=== PATIENT | male | born 1950 | race Caucasian/White ===

== ENCOUNTER 2023-06-10 21:57 | Emergency (ER) | payer OTHER ==
[~2023-06-10] VITALS: Ht 172.7 cm; Wt 60.3 kg
[~2023-06-10 21:57] MED LIST: ANORO ELLIPTA1 EACH INH; DECADRON4 MG PO; DOXYCYCLINE HY100 M3 PO; Ipratropium Brom3 ML INH; LISINOPRIL20 MG PO; MUCINEX1200 M1 PO; NEBULIZER1 EACH MC; NORVASC5 MG PO; OMNICEF300 MG PO; PREDNISONE10 MG PO; PROVENTIL HFA6.7 GM INH; VIBRAMYCIN HYC100 MG PO; ZITHROMAX250 MG PO
[2023-06-10 22:21] LABS: BASO % 0.4 % (0.0-1.0); EOS # 0.7 10*3/uL (0.0-0.4); EOS % 7.1 % (1.0-4.0); HEMATOCRIT 43.6 % (42.0-52.0); LYMPH # 1.6 10*3/uL (1.3-4.4); LYMPH % 15.7 % (27.0-41.0); MEAN CELL VOLUME 91.8 fl (80.0-94.0); MEAN CORPUSCULAR HGB 29.5 pg (27.0-31.0); MEAN CORPUSCULAR HGB CONC 32.1 g/dl (33.0-37.0); MEAN PLATELET VOLUME 9.3 fl (9.6-12.3); MONO # 0.8 10*3/uL (0.1-1.0); MONO % 7.6 % (3.0-9.0); NEUT # 7.1 10*3/uL (2.3-7.9); NEUT % 68.8 % (47.0-73.0); PLATELET COUNT AUTOMATED 331 10*3/uL (130-400); RED BLOOD COUNT 4.75 10*6/uL (4.50-5.90); RED CELL DISTRI WIDTH 12.6 % (0-14.5); WHITE BLOOD COUNT 10.3 10*3/uL (4.8-10.8)
[2023-06-10 22:45] LABS: ALKALINE PHOSPHATASE 76 U/L (46-116); BUN 10 mg/dl (9-23); CHLORIDE 105 mmol/L (98-107); POTASSIUM 3.8 mmol/L (3.4-5.1); SGPT/ALT 12 U/L (5-49)
[2023-06-11] MEDS ORDERED: ZITHROMAX250 MG PO (00:05)
[2023-06-11] MEDS ORDERED: DECADRON4 MG PO (00:05)
[2023-06-11] MEDS ORDERED: DEXAMETHASONE 4 MG TAB PO ONE ×2 (00:10)
== END 2023-06-11 00:56 | disposition home or self-care (01) ==
LOC: ED 21:57
PROVIDERS: Internal Medicine
DX: J44.1 Chronic obstructive pulmonary disease with (acute) exacerbation (principal); I10 Essential (primary) hypertension; Z88.8 Allergy status to other drugs, medicaments and biological substances; Z98.890 Other specified postprocedural states; Z87.891 Personal history of nicotine dependence

== ENCOUNTER 2023-07-30 10:32 | Emergency (ER) | payer OTHER ==
[~2023-07-30] VITALS: Ht 172.7 cm; Wt 63.5 kg
[2023-07-30 11:20] LABS: BASO % 0.9 % (0.0-1.0); EOS # 0.4 10*3/uL (0.0-0.4); EOS % 8.9 % (1.0-4.0); HEMATOCRIT 41.4 % (42.0-52.0); LYMPH # 0.9 10*3/uL (1.3-4.4); LYMPH % 18.3 % (27.0-41.0); MEAN CELL VOLUME 92.4 fl (80.0-94.0); MEAN CORPUSCULAR HGB 29.2 pg (27.0-31.0); MEAN CORPUSCULAR HGB CONC 31.6 g/dl (33.0-37.0); MEAN PLATELET VOLUME 8.7 fl (9.6-12.3); MONO # 0.4 10*3/uL (0.1-1.0); MONO % 8.5 % (3.0-9.0); NEUT % 63.2 % (47.0-73.0); PLATELET COUNT AUTOMATED 293 10*3/uL (130-400); RED BLOOD COUNT 4.48 10*6/uL (4.50-5.90); RED CELL DISTRI WIDTH 14.7 % (0-14.5); WHITE BLOOD COUNT 4.7 10*3/uL (4.8-10.8)
[2023-07-30 11:45] LABS: BUN 7 mg/dl (9-23); CHLORIDE 105 mmol/L (98-107); POTASSIUM 3.9 mmol/L (3.4-5.1)
[2023-07-30] MEDS ORDERED: PREDNISONE50 MG PO (12:56)
[2023-07-30] MEDS ORDERED: AVPAK AZITHROM250 M1 PO (12:56)
[2023-07-30] MEDS ORDERED: predniSONE 20 MG TAB PO ONE (13:00)
[2023-07-30] MEDS ORDERED: AZITHROMYCIN 250 MG TAB PO ONE (13:00)
== END 2023-07-30 13:18 | disposition home or self-care (01) ==
LOC: ED 10:32
PROVIDERS: Physician Assistant Medical
DX: I10 Essential (primary) hypertension (principal); J44.1 Chronic obstructive pulmonary disease with (acute) exacerbation; F12.90 Cannabis use, unspecified, uncomplicated; Z98.890 Other specified postprocedural states; Z87.891 Personal history of nicotine dependence

== ENCOUNTER 2023-09-03 03:43 | Inpatient (IN) | payer OTHER, MEDICAID ==
[~2023-09-03] VITALS: Ht 172.7 cm; Wt 59.9 kg
[~2023-09-03 03:43] MED LIST changes: +AVPAK AZITHROM250 M1 PO; +PREDNISONE50 MG PO
[2023-09-03 03:44] VITALS: BP 150/88
[2023-09-03] MEDS ORDERED: Albuterol Sulf/Ipratropium 3 ML VIAL NEB ONE (03:50)
[2023-09-03 04:13] LABS: BASO # 0.1 10*3/uL (0.0-0.1); BASO % 0.9 % (0.0-1.0); EOS # 0.7 10*3/uL (0.0-0.4); EOS % 10.6 % (1.0-4.0); HEMATOCRIT 40.4 % (42.0-52.0); LYMPH # 1.3 10*3/uL (1.3-4.4); LYMPH % 20.5 % (27.0-41.0); MEAN CELL VOLUME 89.6 fl (80.0-94.0); MEAN CORPUSCULAR HGB 29.3 pg (27.0-31.0); MEAN CORPUSCULAR HGB CONC 32.7 g/dl (33.0-37.0); MEAN PLATELET VOLUME 8.9 fl (9.6-12.3); MONO # 0.6 10*3/uL (0.1-1.0); MONO % 8.9 % (3.0-9.0); NEUT # 3.8 10*3/uL (2.3-7.9); NEUT % 58.9 % (47.0-73.0); PLATELET COUNT AUTOMATED 367 10*3/uL (130-400); RED BLOOD COUNT 4.51 10*6/uL (4.50-5.90); RED CELL DISTRI WIDTH 13.5 % (0-14.5); WHITE BLOOD COUNT 6.5 10*3/uL (4.8-10.8)
[2023-09-03 04:25] LABS: ACT PARTIAL THROMBO TIME 24.4 SECONDS (20.0-32.1)
[2023-09-03 04:32] LABS: BUN 11 mg/dl (9-23); CHLORIDE 106 mmol/L (98-107); POTASSIUM 3.6 mmol/L (3.4-5.1)
[2023-09-03] MEDS ORDERED: Ceftriaxone Sodium 1 GM/10 ML SYR IV ONE (05:25)
[2023-09-03] MEDS ORDERED: AZITHROMYCIN 250 MG TAB PO ONE (05:25)
[2023-09-03] MEDS ORDERED: Magnesium Hydroxide 30 ML UDC PO PRN (07:55)
[2023-09-03] MEDS ORDERED: BISACODYL 5 MG TAB PO PRN (07:55)
[2023-09-03] MEDS ORDERED: ACETAMINOPHEN 650 MG SUPP R PRN (07:55)
[2023-09-03] MEDS ORDERED: ACETAMINOPHEN 325 MG TAB PO PRN (07:55)
[2023-09-03] MEDS ORDERED: TEMAZEPAM 15 MG CAP PO PRN (07:55)
[2023-09-03] MEDS ORDERED: Ondansetron Hydrochloride 4 MG/2 ML VIAL IV PRN (07:55)
[2023-09-03] MEDS ORDERED: BISACODYL 10 MG SUPP R PRN (07:55)
[2023-09-03 09:22] VITALS: BP 117/77
[2023-09-03] MEDS ORDERED: Enoxaparin Sodium 40 MG/0.4 ML SYR SC SCH (10:00)
[2023-09-03 12:06] VITALS: BP 125/61
[2023-09-03] MEDS ORDERED: Albuterol Sulf/Ipratropium 3 ML VIAL NEB SCH (12:35)
[2023-09-03 15:00] VITALS: BP 117/68
[2023-09-03] MEDS ORDERED: LISINOPRIL 20 MG TAB PO SCH (18:00)
[2023-09-03 19:49] VITALS: BP 136/87
[2023-09-03] MEDS ORDERED: GUAIFENESIN 600 MG TAB ER PO SCH (22:00)
[2023-09-03] MEDS ORDERED: methylPREDNISolone sod succ 40 MG VIAL IV SCH (22:00)
[2023-09-03 23:16] VITALS: BP 128/76
[2023-09-04 04:08] LABS: BASO % 0.2 % (0.0-1.0); HEMATOCRIT 40.3 % (42.0-52.0); LYMPH # 0.7 10*3/uL (1.3-4.4); LYMPH % 9.9 % (27.0-41.0); MEAN CELL VOLUME 89.8 fl (80.0-94.0); MEAN CORPUSCULAR HGB CONC 32.3 g/dl (33.0-37.0); MEAN PLATELET VOLUME 9.1 fl (9.6-12.3); MONO # 0.3 10*3/uL (0.1-1.0); MONO % 4.2 % (3.0-9.0); NEUT # 5.6 10*3/uL (2.3-7.9); NEUT % 85.4 % (47.0-73.0); PLATELET COUNT AUTOMATED 345 10*3/uL (130-400); RED BLOOD COUNT 4.49 10*6/uL (4.50-5.90); RED CELL DISTRI WIDTH 13.3 % (0-14.5); WHITE BLOOD COUNT 6.6 10*3/uL (4.8-10.8)
[2023-09-04 04:29] LABS: ALKALINE PHOSPHATASE 54 U/L (46-116); BUN 12 mg/dl (9-23); CHLORIDE 106 mmol/L (98-107); POTASSIUM 4.3 mmol/L (3.4-5.1); SGPT/ALT 10 U/L (5-49); TOTAL PROTEIN 6.3 gm/dL (6.0-8.0)
[2023-09-04] MEDS ORDERED: Ceftriaxone Sodium 1 GM in SYRINGE INFUSION 10 ML IV SCH (06:00)
[2023-09-04 06:06] VITALS: BP 132/82
[2023-09-04] MEDS ORDERED: AZITHROMYCIN 250 ML IV SCH (07:00)
[2023-09-04] MEDS ORDERED: PERFLUTREN PROTEIN-A MICROSPHR 3 ML VIAL IV ONE (07:05)
[2023-09-04 07:28] VITALS: BP 115/83
[2023-09-04] MEDS ORDERED: amLODIPine besylate 5 MG TAB PO SCH (10:00)
[2023-09-04 12:01] VITALS: BP 140/69
[2023-09-04 13:00] VITALS: BP 135/76
[2023-09-04 16:00] VITALS: BP 147/74
[2023-09-04] MEDS ORDERED: COLACE100 MG PO (17:11)
[2023-09-04] MEDS ORDERED: DULCOLAX5 M1 PO (17:11)
[2023-09-04] MEDS ORDERED: DOCUSATE SODIUM 100 MG CAP PO SCH (18:00)
[2023-09-04 20:00] VITALS: BP 153/80
[2023-09-05] VITALS: BP 148/76
[2023-09-05 04:55] LABS: BUN 13 mg/dl (9-23); CHLORIDE 105 mmol/L (98-107); POTASSIUM 4.6 mmol/L (3.4-5.1)
[2023-09-05 05:59] LABS: BASO % 0.1 % (0.0-1.0); HEMATOCRIT 42.2 % (42.0-52.0); LYMPH # 0.8 10*3/uL (1.3-4.4); LYMPH % 9.6 % (27.0-41.0); MEAN CELL VOLUME 92.3 fl (80.0-94.0); MEAN CORPUSCULAR HGB 29.1 pg (27.0-31.0); MEAN CORPUSCULAR HGB CONC 31.5 g/dl (33.0-37.0); MEAN PLATELET VOLUME 9.9 fl (9.6-12.3); MONO # 0.3 10*3/uL (0.1-1.0); MONO % 4.2 % (3.0-9.0); NEUT # 6.8 10*3/uL (2.3-7.9); NEUT % 85.6 % (47.0-73.0); PLATELET COUNT AUTOMATED 380 10*3/uL (130-400); RED BLOOD COUNT 4.57 10*6/uL (4.50-5.90); RED CELL DISTRI WIDTH 13.7 % (0-14.5); WHITE BLOOD COUNT 7.9 10*3/uL (4.8-10.8)
[2023-09-05 08:00] VITALS: BP 138/90
[2023-09-05] MEDS ORDERED: PREDNISONE10 MG PO (10:51)
== END 2023-09-05 12:10 | disposition home or self-care (01) | DRG 191 ==
LOC: ED 03:43 → EDHOLD 06:24 → ICCU 06:24
PROVIDERS: Internal Medicine; Student in an Organized Health Care Education/Training Program; ADMIT Internal Medicine; ATTEND Internal Medicine
DX: J44.1 Chronic obstructive pulmonary disease with (acute) exacerbation (principal); I48.21 Permanent atrial fibrillation; J47.1 Bronchiectasis with (acute) exacerbation; J98.4 Other disorders of lung; I10 Essential (primary) hypertension; I48.0 Paroxysmal atrial fibrillation; R73.9 Hyperglycemia, unspecified; D64.9 Anemia, unspecified; J44.0 Chronic obstructive pulmonary disease with (acute) lower respiratory infection; Z79.899 Other long term (current) drug therapy; Z79.01 Long term (current) use of anticoagulants; Z79.2 Long term (current) use of antibiotics; Z90.49 Acquired absence of other specified parts of digestive tract; Z87.891 Personal history of nicotine dependence; Z80.49 Family history of malignant neoplasm of other genital organs; Z85.038 Personal history of other malignant neoplasm of large intestine

== ENCOUNTER 2023-10-05 01:33 | Inpatient (IN) | payer OTHER, MEDICAID ==
[~2023-10-05] VITALS: Ht 172.7 cm; Wt 61.0 kg
[~2023-10-05 01:33] MED LIST changes: +COLACE100 MG PO; +DULCOLAX5 M1 PO
[2023-10-05 01:37] VITALS: BP 153/79
[2023-10-05] MEDS ORDERED: methylPREDNISolone sod succ 125 MG VIAL IV ONE (01:45)
[2023-10-05] MEDS ORDERED: Albuterol Sulf/Ipratropium 3 ML VIAL NEB ONE (01:45)
[2023-10-05 02:04] LABS: BASO % 0.4 % (0.0-1.0); EOS # 0.3 10*3/uL (0.0-0.4); EOS % 4.6 % (1.0-4.0); HEMATOCRIT 43.4 % (42.0-52.0); LYMPH # 0.9 10*3/uL (1.3-4.4); LYMPH % 13.4 % (27.0-41.0); MEAN CELL VOLUME 88.6 fl (80.0-94.0); MEAN CORPUSCULAR HGB 28.8 pg (27.0-31.0); MEAN CORPUSCULAR HGB CONC 32.5 g/dl (33.0-37.0); MEAN PLATELET VOLUME 8.8 fl (9.6-12.3); MONO # 0.6 10*3/uL (0.1-1.0); MONO % 8.2 % (3.0-9.0); NEUT # 4.9 10*3/uL (2.3-7.9); NEUT % 72.8 % (47.0-73.0); PLATELET COUNT AUTOMATED 322 10*3/uL (130-400); RED CELL DISTRI WIDTH 13.1 % (0-14.5); WHITE BLOOD COUNT 6.7 10*3/uL (4.8-10.8)
[2023-10-05 02:27] LABS: BUN 12 mg/dl (9-23); CHLORIDE 102 mmol/L (98-107); POTASSIUM 3.9 mmol/L (3.4-5.1)
[2023-10-05] MEDS ORDERED: SODIUM CHLORIDE 0.9% 1,000 ML IV ONE ×2 (03:10→04:25)
[2023-10-05] MEDS ORDERED: Ceftriaxone Sodium 1 GM/10 ML SYR IV ONE (03:15)
[2023-10-05] MEDS ORDERED: AZITHROMYCIN 250 ML IV ONE (03:20)
[2023-10-05] MEDS ORDERED: Magnesium Hydroxide 30 ML UDC PO PRN (03:50)
[2023-10-05] MEDS ORDERED: BISACODYL 10 MG SUPP R PRN (03:50)
[2023-10-05] MEDS ORDERED: BISACODYL 5 MG TAB PO PRN (03:50)
[2023-10-05] MEDS ORDERED: ACETAMINOPHEN 650 MG SUPP R PRN (03:50)
[2023-10-05] MEDS ORDERED: MORPHINE Sulfate 2 MG/ML SYR IV PRN (03:50)
[2023-10-05] MEDS ORDERED: ACETAMINOPHEN 325 MG TAB PO PRN (03:50)
[2023-10-05] MEDS ORDERED: TEMAZEPAM 15 MG CAP PO PRN (03:50)
[2023-10-05] MEDS ORDERED: Ondansetron Hydrochloride 4 MG/2 ML VIAL IV PRN (03:50)
[2023-10-05 04:22] VITALS: BP 149/93
[2023-10-05] MEDS ORDERED: Albuterol Sulfate 2.5 MG/3 ML VIAL NEB SCH (05:00)
[2023-10-05 05:46] LABS: ALKALINE PHOSPHATASE 77 U/L (46-116); BUN 10 mg/dl (9-23); CHLORIDE 108 mmol/L (98-107); CHOLESTEROL 200 mg/dL (<200); FREE T4 1.12 ng/dl (0.89-1.76); LDL CHOLESTEROL 145 mg/dL (9-159); SGPT/ALT 11 U/L (5-49); TOTAL PROTEIN 6.5 gm/dL (6.0-8.0); TRIGLYCERIDES 68 mg/dl (<150)
[2023-10-05 06:30] LABS: BASO % 0.3 % (0.0-1.0); EOS # 0.2 10*3/uL (0.0-0.4); EOS % 3.4 % (1.0-4.0); HEMATOCRIT 40.3 % (42.0-52.0); LYMPH # 0.4 10*3/uL (1.3-4.4); LYMPH % 5.3 % (27.0-41.0); MEAN CELL VOLUME 86.9 fl (80.0-94.0); MEAN CORPUSCULAR HGB 29.5 pg (27.0-31.0); MEAN PLATELET VOLUME 9.6 fl (9.6-12.3); MONO # 0.1 10*3/uL (0.1-1.0); MONO % 1.8 % (3.0-9.0); NEUT # 6.3 10*3/uL (2.3-7.9); NEUT % 88.6 % (47.0-73.0); PLATELET COUNT AUTOMATED 322 10*3/uL (130-400); RED BLOOD COUNT 4.64 10*6/uL (4.50-5.90); RED CELL DISTRI WIDTH 13.2 % (0-14.5); WHITE BLOOD COUNT 7.1 10*3/uL (4.8-10.8)
[2023-10-05 09:13] LABS: VITAMIN D, 25-HYDROXY 35.6 ng/mL (30-100)
[2023-10-05] MEDS ORDERED: GUAIFENESIN 600 MG TAB ER PO SCH (10:00)
[2023-10-05] MEDS ORDERED: Enoxaparin Sodium 40 MG/0.4 ML SYR SC SCH (10:00)
[2023-10-05] MEDS ORDERED: Enoxaparin Sodium 60 MG/0.6 ML SYR SC SCH (10:00)
[2023-10-05] MEDS ORDERED: methylPREDNISolone sod succ 40 MG VIAL IV SCH (10:00)
[2023-10-05 16:00] VITALS: BP 152/82
[2023-10-05 20:00] VITALS: BP 163/86
[2023-10-05] MEDS ORDERED: LISINOPRIL 20 MG TAB PO SCH (22:00)
[2023-10-06] VITALS: BP 132/75
[2023-10-06 05:58] LABS: BUN 12 mg/dl (9-23); CHLORIDE 107 mmol/L (98-107); POTASSIUM 4.2 mmol/L (3.4-5.1)
[2023-10-06 06:18] LABS: BASO % 0.2 % (0.0-1.0); HEMATOCRIT 39.6 % (42.0-52.0); LYMPH # 1.2 10*3/uL (1.3-4.4); LYMPH % 10.8 % (27.0-41.0); MEAN CELL VOLUME 88.2 fl (80.0-94.0); MEAN CORPUSCULAR HGB 28.7 pg (27.0-31.0); MEAN CORPUSCULAR HGB CONC 32.6 g/dl (33.0-37.0); MEAN PLATELET VOLUME 9.6 fl (9.6-12.3); MONO # 0.6 10*3/uL (0.1-1.0); MONO % 5.5 % (3.0-9.0); NEUT # 9.3 10*3/uL (2.3-7.9); PLATELET COUNT AUTOMATED 342 10*3/uL (130-400); RED BLOOD COUNT 4.49 10*6/uL (4.50-5.90); RED CELL DISTRI WIDTH 13.1 % (0-14.5); WHITE BLOOD COUNT 11.2 10*3/uL (4.8-10.8)
[2023-10-06 08:00] VITALS: BP 126/84
[2023-10-06] MEDS ORDERED: amLODIPine besylate 5 MG TAB PO SCH (10:00)
[2023-10-06] MEDS ORDERED: Ceftriaxone Sodium 1 GM in SYRINGE INFUSION 10 ML IV SCH (10:00)
[2023-10-06] MEDS ORDERED: AZITHROMYCIN 250 ML IV SCH (10:00)
[2023-10-06 12:00] VITALS: BP 112/54; BP 133/83
[2023-10-06 16:00] VITALS: BP 134/72
[2023-10-06 20:00] VITALS: BP 135/66
[2023-10-07] VITALS: BP 135/74
[2023-10-07 06:16] LABS: BASO # 0.1 10*3/uL (0.0-0.1); BASO % 0.4 % (0.0-1.0); EOS % 0.1 % (1.0-4.0); HEMATOCRIT 38.7 % (42.0-52.0); LYMPH # 1.3 10*3/uL (1.3-4.4); LYMPH % 11.4 % (27.0-41.0); MEAN CELL VOLUME 88.4 fl (80.0-94.0); MEAN CORPUSCULAR HGB 29.2 pg (27.0-31.0); MEAN CORPUSCULAR HGB CONC 33.1 g/dl (33.0-37.0); MEAN PLATELET VOLUME 9.6 fl (9.6-12.3); MONO # 0.7 10*3/uL (0.1-1.0); MONO % 6.3 % (3.0-9.0); NEUT # 9.1 10*3/uL (2.3-7.9); PLATELET COUNT AUTOMATED 353 10*3/uL (130-400); RED BLOOD COUNT 4.38 10*6/uL (4.50-5.90); RED CELL DISTRI WIDTH 13.4 % (0-14.5); WHITE BLOOD COUNT 11.4 10*3/uL (4.8-10.8)
[2023-10-07 06:35] LABS: BUN 13 mg/dl (9-23); CHLORIDE 108 mmol/L (98-107); POTASSIUM 4.4 mmol/L (3.4-5.1)
[2023-10-07 08:00] VITALS: BP 128/73
[2023-10-07 12:00] VITALS: BP 146/82
[2023-10-07] MEDS ORDERED: PREDNISONE50 MG PO (13:49)
[2023-10-07] MEDS ORDERED: ZITHROMAX250 MG PO (13:49)
[2023-10-07] MEDS ORDERED: MUCUS RELIEF600 MG PO (13:49)
== END 2023-10-07 15:00 | disposition home or self-care (01) | DRG 871 ==
LOC: ED 01:33 → 4E 03:19 → EDHOLD 03:19 → 4E 14:31
PROVIDERS: Emergency Medicine; Student in an Organized Health Care Education/Training Program; ADMIT Internal Medicine; ATTEND Internal Medicine
PROC: 5A09357 Assistance with Respiratory Ventilation, Less than 24 Consecutive Hours, Continuous Positive Airway Pressure (ICD-10-PCS; principal; 2023-10-05)
DX: A41.9 Sepsis, unspecified organism (principal); J96.01 Acute respiratory failure with hypoxia; J44.1 Chronic obstructive pulmonary disease with (acute) exacerbation; J98.4 Other disorders of lung; I48.0 Paroxysmal atrial fibrillation; R73.9 Hyperglycemia, unspecified; I10 Essential (primary) hypertension; E87.8 Other disorders of electrolyte and fluid balance, not elsewhere classified; Z90.49 Acquired absence of other specified parts of digestive tract; Z87.891 Personal history of nicotine dependence; Z80.0 Family history of malignant neoplasm of digestive organs; Z80.52 Family history of malignant neoplasm of bladder

== ENCOUNTER → 2023-11-18 | Emergency (ER) | payer OTHER, MEDICAID ==
[~2023-11-18] VITALS: Ht 172.7 cm; Wt 61.2 kg
[~2023-11-18] MED LIST changes: +AZITHROMYCIN 250 ML IV ONE; +Albuterol Sulf/Ipratropium 3 ML VIAL NEB ONE; +MAGNESIUM SULFATE 50 ML IV ONE; +MUCUS RELIEF600 MG PO
[2023-11-18 15:20] LABS: BASO # 0.1 10*3/uL (0.0-0.1); BASO % 0.8 % (0.0-1.0); EOS # 0.8 10*3/uL (0.0-0.4); EOS % 13.3 % (1.0-4.0); HEMATOCRIT 43.4 % (42.0-52.0); LYMPH # 0.9 10*3/uL (1.3-4.4); LYMPH % 15.7 % (27.0-41.0); MEAN CELL VOLUME 89.7 fl (80.0-94.0); MEAN CORPUSCULAR HGB 28.9 pg (27.0-31.0); MEAN CORPUSCULAR HGB CONC 32.3 g/dl (33.0-37.0); MEAN PLATELET VOLUME 8.9 fl (9.6-12.3); MONO # 0.5 10*3/uL (0.1-1.0); MONO % 8.6 % (3.0-9.0); NEUT # 3.6 10*3/uL (2.3-7.9); NEUT % 61.4 % (47.0-73.0); PLATELET COUNT AUTOMATED 351 10*3/uL (130-400); RED BLOOD COUNT 4.84 10*6/uL (4.50-5.90); RED CELL DISTRI WIDTH 13.2 % (0-14.5); WHITE BLOOD COUNT 5.9 10*3/uL (4.8-10.8)
[2023-11-18 15:34] LABS: BUN 11 mg/dl (9-23); CHLORIDE 103 mmol/L (98-107); POTASSIUM 4.2 mmol/L (3.4-5.1)
== END ==
LOC: ED 14:55
PROVIDERS: Emergency Medicine
DX: J44.1 Chronic obstructive pulmonary disease with (acute) exacerbation (principal); Z20.822 Contact with and (suspected) exposure to COVID-19; I10 Essential (primary) hypertension; Z98.890 Other specified postprocedural states; Z87.891 Personal history of nicotine dependence